=== PATIENT | male | born 2000 | race Hispanic/Latino ===

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

== ENCOUNTER 2021-02-17 00:10 | Emergency (ER) | payer OTHER ==
[~2021-02-17] VITALS: Ht 167.6 cm; Wt 66.2 kg
[~2021-02-17 00:10] MED LIST: HYDROXYZINE HCL25 MG PO
[2021-02-17 02:35] VITALS: BP 123/74
== END 2021-02-17 02:35 | disposition home or self-care (01) ==
LOC: FSED 00:23
DX: R55 Syncope and collapse (principal); F41.9 Anxiety disorder, unspecified
CPT/HCPCS: 70450; 80053; 80307; 81003; 82553; 84484; 85025; 93005; 99283

== ENCOUNTER 2022-03-24 13:25 | Emergency (ER) | payer OTHER ==
[~2022-03-24] VITALS: Ht 167.6 cm; Wt 66.2 kg
[2022-03-24] MEDS ORDERED: ACETAMINOPHEN 325 MG TAB PO ONE (14:00)
== END 2022-03-24 17:11 | disposition home or self-care (01) ==
LOC: ER 13:31
DX: S00.83XA Contusion of other part of head, initial encounter (principal); M79.642 Pain in left hand; M79.641 Pain in right hand; S60.512A Abrasion of left hand, initial encounter; S60.511A Abrasion of right hand, initial encounter; V47.5XXA Car driver injured in collision with fixed or stationary object in traffic accident, initial encounter; Y92.488 Other paved roadways as the place of occurrence of the external cause; R00.2 Palpitations; F41.9 Anxiety disorder, unspecified
CPT/HCPCS: 70450; 99285